=== PATIENT | male | born 1990 | race Caucasian/White ===

== ENCOUNTER 2020-06-03 20:54 | Inpatient (IN) ==
[2020-06-03] MEDS ORDERED: Tdap (Boostrix) Vaccine 0.5 ML SYRINGE IM ONE (21:10)
[2020-06-03 21:33] LABS: Basophils % 0.4 %; Eosinophils # 0.5 K/mcL (0.0-0.6); Eosinophils % 7.7 %; Hematocrit 43.2 % (37.5-50.1); Hemoglobin 14.8 g/dL (12.9-16.9); Immature Granulocytes % 0.1 % (0-4); Lymphocytes # 1.7 K/mcL (0.6-4.6); Lymphocytes % 24.6 %; Mean Corpuscular HGB Conc 34.3 g/dL (31.6-35.5); Mean Corpuscular Hemoglobin 29.8 pg (28.0-33.3); Mean Corpuscular Volume 87.1 fL (83.0-100.0); Mean Platelet Volume 8.5 fL (9.4-12.4); Monocytes # 0.6 K/mcL (0.0-1.3); Monocytes % 8.8 %; Neutrophils # 3.9 K/mcL (1.6-8.9); Platelet Count 262 K/mcL (140-400); Red Blood Count 4.96 M/mcL (4.19-5.50); Red Cell Distribution Width 12.2 % (11.5-14.5); Segmented Neutrophils % 58.4 %; White Blood Count 6.7 K/mcL (4.3-11.1)
[2020-06-03 21:52] LABS: BUN/Creatinine Ratio 10 (6-26); Blood Urea Nitrogen 10 mg/dL (6-20); C-Reactive Protein 20 mg/L (Less than 10); Calcium 9.6 mg/dL (8.6-10.3); Carbon Dioxide 28 mEq/L (23-29); Chloride 102 mEq/L (98-107); Glucose 97 mg/dL (70-105); Osmolality,Calculated 285 (280-300); Potassium 4.3 mEq/L (3.5-5.1); Sodium 138 mEq/L (136-145); eGFR For African Americans > 60 (> 60); eGFR For Non-African Americans > 60 (> 60)
[2020-06-03] MEDS ORDERED: cefTRIAXone 1,000 MG in Water for inj. (sterile) 10 ML IVP ONE (22:12)
[2020-06-03] MEDS ORDERED: Morphine Sulfate 2 MG/ML SYRINGE IVP ONE (22:32)
[2020-06-03] MEDS ORDERED: Naloxone 0.4 MG/ML INJ IVP PRN (23:39)
[2020-06-03] MEDS ORDERED: Ondansetron 4 MG/2 ML VIAL IVP PRN (23:41)
[2020-06-04 03:24] LABS: Basophils % 0.5 %; Eosinophils # 0.5 K/mcL (0.0-0.6); Eosinophils % 7.5 %; Hematocrit 40.7 % (37.5-50.1); Hemoglobin 14.2 g/dL (12.9-16.9); Immature Granulocytes % 0.2 % (0-4); Lymphocytes # 1.4 K/mcL (0.6-4.6); Lymphocytes % 21.6 %; Mean Corpuscular HGB Conc 34.9 g/dL (31.6-35.5); Mean Platelet Volume 8.7 fL (9.4-12.4); Monocytes # 0.5 K/mcL (0.0-1.3); Monocytes % 7.5 %; Neutrophils # 4.1 K/mcL (1.6-8.9); Platelet Count 251 K/mcL (140-400); Red Blood Count 4.73 M/mcL (4.19-5.50); Red Cell Distribution Width 12.1 % (11.5-14.5); Segmented Neutrophils % 62.7 %; White Blood Count 6.6 K/mcL (4.3-11.1)
[2020-06-04 03:26] LABS: INR 1.1
[2020-06-04 03:28] LABS: Activated Partial Thrombo Time 35.1 Seconds (26.0-36.0)
[2020-06-04 03:38] LABS: Alanine Aminotransferase 11 Units/L (7-52); Albumin 4.2 g/dL (3.5-5.7); Albumin/Globulin Ratio 1.5 (1.1-2.2); Alkaline Phosphatase 59 Units/L (34-104); Aspartate Amino Transferase 18 Units/L (13-39); BUN/Creatinine Ratio 13 (6-26); Bilirubin,Total 0.6 mg/dL (0.3-1.0); Blood Urea Nitrogen 11 mg/dL (6-20); Calcium 9.3 mg/dL (8.6-10.3); Carbon Dioxide 24 mEq/L (23-29); Chloride 101 mEq/L (98-107); Globulin 2.8 g/dL (2.4-3.5); Glucose 98 mg/dL (70-105); Osmolality,Calculated 281 (280-300); Phosphorous 3.8 mg/dL (2.7-4.5); Potassium 3.8 mEq/L (3.5-5.1); Sodium 136 mEq/L (136-145); eGFR For African Americans > 60 (> 60); eGFR For Non-African Americans > 60 (> 60)
[2020-06-04] MEDS ORDERED: Ondansetron 4 MG/2 ML VIAL ONE (10:48)
[2020-06-04] MEDS ORDERED: Lidocaine -MPF 2% 2 ML VIAL ONE (10:48)
[2020-06-04] MEDS ORDERED: Dexamethasone 4 MG/ML VIAL ONE (10:48)
[2020-06-04] MEDS ORDERED: *HR* Propofol 200 MG/20 ML VIAL IVP ONE (10:48)
[2020-06-04] MEDS ORDERED: *HR* FentaNYL (PF) 100 MCG/2 ML VIAL ONE (10:48)
[2020-06-04] MEDS ORDERED: Acetaminophen IV 1,000 MG/100 ML INFUS..BTL ONE (11:30)
[2020-06-04] MEDS ORDERED: Famotidine 20 MG/2 ML VIAL ONE (11:30)
[2020-06-04] MEDS ORDERED: Vancomycin 1,000 MG VIAL ONE (11:43)
[2020-06-04] MEDS ORDERED: cefTRIAXone 1,000 MG in Water for inj. (sterile) 10 ML IVP SCH (12:00)
[2020-06-04] MEDS ORDERED: *HR* OxyCODONE Immed Rel 5 MG TABLET PO PRN (12:21)
[2020-06-04] MEDS ORDERED: *HR* HYDROmorphone PF 0.5 MG/0.5 ML SYRINGE IVP PRN ×2 (12:21→13:37)
[2020-06-04] MEDS ORDERED: Ondansetron 4 MG/2 ML VIAL IVP ONE ×2 (12:21→13:37)
[2020-06-04] MEDS ORDERED: Ondansetron 4 MG/2 ML VIAL IVP PRN (13:37)
[2020-06-04] MEDS ORDERED: Naloxone 0.4 MG/ML INJ IVP PRN (13:37)
[2020-06-04 16:27] VITALS: BP 120/74
[2020-06-05] MEDS ORDERED: cefTRIAXone 1,000 MG in Water for inj. (sterile) 10 ML IVP SCH (09:00)
== END 2020-06-04 19:46 | disposition left against medical advice (07) | DRG 383 ==
LOC: 3ANU 20:54 → EMEROOARM 20:54 → 3ANU 23:56
PROVIDERS: ADMIT Family Medicine; ATTEND Internal Medicine